=== PATIENT | female | born 1995 | race American Indian/Alaskan Native ===

== ENCOUNTER 2016-08-22 15:09 | Emergency (ER) | payer SELFPAY ==
[2016-08-22] MEDS ORDERED: MOTRIN PO ONE (17:43)
[2016-08-22] MEDS ORDERED: NORCO 5/325 PO ONE (17:43)
[2016-08-22] MEDS ORDERED: BICILLIN L-A IM ONE (17:43)
--- NOTE | 2016-08-22 17:45 | Emergency Department Report ---
ED ENT HPI - General Chief complaint: Sore Throat Stated complaint: UNABLE TO SWOLLOW/EAR PAIN/SORE THROAT Time Seen by Provider: 08/22/16 17:36 Source: patient Mode of arrival: Ambulatory Limitations: No Limitations - History of Present Illness Initial comments: PT c/o sore throat x 3 days. PT states her throat feels swollen and it hurts to eat/ swallow. PT states she took Benadryl today but it did not help. PT states she has had chills and body aches. MD complaint: tooth pain, ear pain Onset/Timin -: Gradual, days(s) Severity scale (0 -10): 10 Quality: stabbing, constant Consistency: constant Improves with: none Worsens with: swallowing, eating, medication Associated Symptoms: pain with swallowing, sore throat. denies: cough, discharge from ear - Related Data Previous Rx's Medication Instructions Recorded Last Taken Type Acetaminophen/Codeine [Tylenol #3] 1 tab PO Q6H PRN #7 tab 08/22/16 Unknown Rx Ibuprofen [Motrin] 600 mg PO Q8H PRN #15 tablet 08/22/16 Unknown Rx Allergies Allergy/AdvReac Type Severity Reaction Status Date / Time apple Allergy Hives Verified 08/22/16 15:30 ED Dental HPI - General Chief complaint: Sore Throat Stated complaint: UNABLE TO SWOLLOW/EAR PAIN/SORE THROAT Time Seen by Provider: 08/22/16 17:36 Source: patient Mode of arrival: Ambulatory Limitations: No Limitations - Related Data Previous Rx's Medication Instructions Recorded Last Taken Type Acetaminophen/Codeine [Tylenol #3] 1 tab PO Q6H PRN #7 tab 08/22/16 Unknown Rx Ibuprofen [Motrin] 600 mg PO Q8H PRN #15 tablet 08/22/16 Unknown Rx Allergies Allergy/AdvReac Type Severity Reaction Status Date / Time apple Allergy Hives Verified 08/22/16 15:30 ED Review of Systems ROS: Stated complaint: UNABLE TO SWOLLOW/EAR PAIN/SORE THROAT Other details as noted in HPI Comment: All other systems reviewed and negative Constitutional: chills, malaise. denies: fever ENT: as per HPI, ear pain, throat pain Respiratory: denies: cough Cardiovascular: denies: chest pain Gastrointestinal: denies: abdominal pain Genitourinary: abnormal menses (pt did not start her cycle today ) Hematological/Lymphatic: swollen glands ED Past Medical Hx - Past Medical History Previous Medical History?: No - Surgical History Past Surgical History?: No - Social History Smoking Status: Never Smoker Substance Use Type: None - Medications Home Medications: Home Medications Medication Instructions Recorded Confirmed Last Taken Type Acetaminophen/Codeine [Tylenol #3] 1 tab PO Q6H PRN #7 tab 08/22/16 Unknown Rx Ibuprofen [Motrin] 600 mg PO Q8H PRN #15 tablet 08/22/16 Unknown Rx ED Physical Exam - General Limitations: No Limitations General appearance: alert, in no apparent distress - Head Head exam: Present: atraumatic, normocephalic, normal inspection - Eye Eye exam: Present: normal appearance, PERRL, EOMI. Absent: conjunctival injection - ENT ENT exam: Present: mucous membranes moist, normal external ear exam - Expanded ENT Exam Expanded Ear exam: Present: other (LTM wnl ) TM/Canal exam: Foreign Body: Right TM (orange foam ) Mouth exam: Present: normal external inspection. Absent: drooling, trismus Throat exam: Positive: tonsillar erythema, tonsillomegaly, tonsillar exudate. Negative: R peritonsillar mass, L peritonsillar mass - Neck Neck exam: Present: normal inspection, tenderness, full ROM, lymphadenopathy - Respiratory Respiratory exam: Present: normal lung sounds bilaterally. Absent: respiratory distress - Cardiovascular Cardiovascular Exam: Present: regular rate, normal rhythm, normal heart sounds - GI/Abdominal GI/Abdominal exam: Present: soft, normal bowel sounds. Absent: tenderness - Extremities Exam Extremities exam: Present: normal inspection, full ROM - Back Exam Back exam: Present: normal inspection, full ROM. Absent: tenderness, CVA tenderness (R), CVA tenderness (L), muscle spasm, paraspinal tenderness, vertebral tenderness - Neurological Exam Neurological exam: Present: alert, oriented X3, normal gait - Psychiatric Psychiatric exam: Present: normal affect, normal mood - Skin Skin exam: Present: warm, dry, intact, normal color ED Course Vital Signs 08/22/16 08/22/16 08/22/16 15:30 17:46 17:59 Temperature 99.3 F 99.7 F H Pulse Rate 101 H Respiratory 18 16 Rate Blood Pressure 128/78 Blood Pressure [Right] O2 Sat by Pulse 100 Oximetry 06/21/17 06/21/17 06/21/17 19:35 19:45 19:46 Temperature 99 F 98.4 F 98.4 F Pulse Rate 98 H 98 H Respiratory 18 18 Rate Blood Pressure Blood Pressure 103/61 103/61 [Right] O2 Sat by Pulse 98 98 Oximetry - Reevaluation(s) Reevaluation #1: 08/22/16 17:56 PT aware of plan of care. PT has no questions at this time. Reevaluation #2: 08/22/16 19:36 PT aware of lab results. PT states her throat still hurts but her body aches improved. PT tolerating po intake. PT aware she will need to follow up with PCP. PT given strict return precautions. PT has no questions at this time. - Foreign Body Removal Ear Location: ear canal (R) Foreign Body Suspected: other (foam) Foreign Body Removed: yes Foreign Body Removal Technique: forceps (alligator) Tympanic Membrane Intact: Yes (and wnl ) Patient Tolerated Procedure: well Complications: none ED Medical Decision Making - Lab Data Laboratory Results - last 24 hr 08/22/16 18:56 Urine HCG, Qual Negative - Differential Diagnosis om, oe, fb, exudative pharyngits Critical Care Time: No Critical care attestation.: If time is entered above; I have spent that time in minutes in the direct care of this critically ill patient, excluding procedure time. ED Disposition Disposition: DC-01 TO HOME OR SELFCARE Is pt being admited?: No Does the pt Need Aspirin: No Condition: Stable Instructions: Ear Foreign Body (ED), Strep Throat (ED), Tonsillitis (ED) Additional Instructions: drink plenty of fluids strep throat is contagious, you were treated for it today, you should not need further antibiotics Change your toothbrush No driving after Tylenol #3 return to ED if worsening, otherwise follow up with PCP Prescriptions: Acetaminophen/Codeine [Tylenol #3] 1 tab PO Q6H PRN #7 tab PRN Reason: Pain , Severe (7-10) Ibuprofen [Motrin] 600 mg PO Q8H PRN #15 tablet PRN Reason: Pain Referrals: PRIMARY CARE, [Primary Care Provider] - 3-5 Days IMELDA BANASL MD [Staff Physician] - 3-5 Days [facility] [Outside] - 3-5 Days [facility] [Outside] - 3-5 Days Forms: Work/School Release Form(ED) Time of Disposition: 19:38
[2016-08-22 19:46] VITALS: BP 103/61
== END 2016-08-22 19:46 | disposition home or self-care (01) ==
LOC: ED 15:09
DX: T16.1XXA Foreign body in right ear, initial encounter (principal); J02.9 Acute pharyngitis, unspecified; K08.89 Other specified disorders of teeth and supporting structures; Z91.018 Allergy to other foods; W45.8XXA Other foreign body or object entering through skin, initial encounter; Y93.89 Activity, other specified; Y99.8 Other external cause status; Y92.89 Other specified places as the place of occurrence of the external cause
CPT/HCPCS: 69200; 81025; 96372; 99283; J0561

== ENCOUNTER 2017-02-23 09:28 | Emergency (ER) | payer OTHER ==
[2017-02-23 10:15] LABS: Basophils % (Auto) 0.5 % (0.0-1.8); Eosinophils % (Auto) 0.6 % (0.0-4.3); Hematocrit 38.8 % (30.3-42.9); Hemoglobin 13.2 gm/dl (10.1-14.3); Mean Corpuscular HGB Conc 34 % (30-34); Mean Corpuscular Hemoglobin 31 pg (28-32); Mean Corpuscular Volume 90 fl (79-97); Platelet Count 384 K/mm3 (140-440); Red Blood Count 4.31 M/mm3 (3.65-5.03)
[2017-02-23 10:24] LABS: INR 0.93 (0.87-1.13)
[2017-02-23 10:25] LABS: Anion Gap 17 mmol/L; BUN/Creatinine Ratio 13; Blood Urea Nitrogen 9 mg/dL (7-17); Carbon Dioxide 25 mmol/L (22-30); Chloride 99.1 mmol/L (98-107); Glucose 104 mg/dL (65-100); Potassium 4.1 mmol/L (3.6-5.0); Sodium 137 mmol/L (137-145)
[2017-02-23 10:26] LABS: Partial Thromboplastin Time 33.9 Sec. (24.2-36.6)
[2017-02-23 10:53] LABS: Bacteria,Urine 1+ /HPF (Negative); Bilirubin,Urine NEG (Negative); Blood,Urine SM (Negative); Ketones,Urine NEG (Negative); Leukocyte Esterase,Urine LG (Negative); Mucus,Urine FEW /HPF; Nitrite,Urine NEG (Negative); Protein,Urine <15 mg/dL mg/dL (Negative); Urobilinogen,Urine < 2.0 mg/dL (<2.0)
[2017-02-23] MEDS ORDERED: CARAFATE PO ONE (13:29)
[2017-02-23] MEDS ORDERED: PEPCID IV ONE (13:29)
[2017-02-23] MEDS ORDERED: ZOFRAN IV ONE (13:29)
[2017-02-23] MEDS ORDERED: NACL 0.9% 1000 ML 1,000 ML IV ONE (13:29)
[2017-02-23] MEDS ORDERED: TYLENOL PO ONE (13:30)
--- NOTE | 2017-02-23 13:30 | Emergency Department Report ---
ED General Adult HPI - General Chief complaint: Abdominal Pain Stated complaint: VOMITING Time Seen by Provider: 02/23/17 13:20 Source: patient, RN notes reviewed Mode of arrival: Ambulatory Limitations: No Limitations - History of Present Illness Initial comments: This is a 21-year-old female who was previously unknown to this provider. She does not have a primary care doctor. She has no chronic medical conditions. Patient reports that she is not , reports she is not given for the past 2 months, is not taking oral contraceptives, and denies DVT and pulmonary embolus risk factors. Patient presents to the ER with cough, vomiting blood, neck discomfort, back discomfort, myalgias, malaise and fatigue. Symptoms have been present since yesterday. They're constant. They decrease with rest. They decrease with over -the-counter pain medication, patient admits to cough, and fever at home yesterday to 103. -: Gradual, hour(s) Location: face, mouth, back Radiation: non-radiation Quality: aching Improves with: medication, rest Worsens with: movement Associated Symptoms: cough, fever/chills, weakness. denies: confusion, chest pain - Related Data Previous Rx's Medication Instructions Recorded Last Taken Type Acetaminophen/Codeine [Tylenol #3] 1 tab PO Q6H PRN #7 tab 08/22/16 Unknown Rx Ibuprofen [Motrin] 600 mg PO Q8H PRN #15 tablet 08/22/16 Unknown Rx Acetaminophen [Tylenol Arthritis] 650 mg PO Q6HR PRN #30 tablet.er 02/23/17 Unknown Rx Albuterol Sulfate [Proair 90 mcg IH Q4HR PRN #2 aer.pow.ba 02/23/17 Unknown Rx Respiclick] Benzonatate [Tessalon Perles] 100 mg PO Q8HR PRN #30 capsule 02/23/17 Unknown Rx Famotidine [Pepcid] 20 mg PO QDAY #30 tablet 02/23/17 Unknown Rx Fluticasone [Flonase] 1 spray NS QDAY #1 bottle 02/23/17 Unknown Rx Ondansetron [Zofran Odt] 4 mg PO Q8HR PRN #20 tab.rapdis 02/23/17 Unknown Rx Allergies Allergy/AdvReac Type Severity Reaction Status Date / Time apple Allergy Hives Verified 02/23/17 15:31 ED Review of Systems ROS: Stated complaint: VOMITING Other details as noted in HPI Constitutional: malaise, weakness ENT: throat pain, congestion. denies: epistaxis Respiratory: cough Cardiovascular: denies: chest pain Gastrointestinal: vomiting Musculoskeletal: back pain Neurological: weakness ED Past Medical Hx - Past Medical History Previous Medical History?: No - Surgical History Past Surgical History?: No - Social History Smoking Status: Never Smoker Substance Use Type: None - Medications Home Medications: Home Medications Medication Instructions Recorded Confirmed Last Taken Type Acetaminophen/Codeine [Tylenol #3] 1 tab PO Q6H PRN #7 tab 08/22/16 Unknown Rx Ibuprofen [Motrin] 600 mg PO Q8H PRN #15 tablet 08/22/16 Unknown Rx Acetaminophen [Tylenol Arthritis] 650 mg PO Q6HR PRN #30 tablet.er 02/23/17 Unknown Rx Albuterol Sulfate [Proair 90 mcg IH Q4HR PRN #2 aer.pow.ba 02/23/17 Unknown Rx Respiclick] Benzonatate [Tessalon Perles] 100 mg PO Q8HR PRN #30 capsule 02/23/17 Unknown Rx Famotidine [Pepcid] 20 mg PO QDAY #30 tablet 02/23/17 Unknown Rx Fluticasone [Flonase] 1 spray NS QDAY #1 bottle 02/23/17 Unknown Rx Ondansetron [Zofran Odt] 4 mg PO Q8HR PRN #20 tab.rapdis 02/23/17 Unknown Rx ED Physical Exam - General Limitations: No Limitations General appearance: alert, in no apparent distress - Head Head exam: Present: atraumatic, normocephalic - Eye Eye exam: Present: normal appearance, PERRL, EOMI. Absent: nystagmus - ENT ENT exam: Present: normal exam, normal orophraynx, mucous membranes moist, TM's normal bilaterally, normal external ear exam - Neck Neck exam: Present: normal inspection, full ROM. Absent: tenderness, meningismus - Respiratory Respiratory exam: Present: normal lung sounds bilaterally. Absent: respiratory distress - Cardiovascular Cardiovascular Exam: Present: normal rhythm, tachycardia, normal heart sounds. Absent: systolic murmur, diastolic murmur, rubs, gallop - GI/Abdominal GI/Abdominal exam: Present: soft, normal bowel sounds. Absent: distended, tenderness, guarding, rebound, rigid, pulsatile mass - Extremities Exam Extremities exam: Present: normal inspection, full ROM, normal capillary refill. Absent: tenderness, pedal edema, joint swelling, calf tenderness - Back Exam Back exam: Present: normal inspection, full ROM. Absent: tenderness, CVA tenderness (R), paraspinal tenderness, vertebral tenderness - Neurological Exam Neurological exam: Present: alert, oriented X3, CN II-XII intact, normal gait, other (Extraocular movements intact. Tongue midline. No facial droop. Facial sensation intact to light touch in the V1, V2, V3 distribution bilaterally. 5 and 5 strength in 4 extremities.. Sensation is intact to light touch in 4 extremities.). Absent: motor sensory deficit - Psychiatric Psychiatric exam: Present: normal affect, normal mood - Skin Skin exam: Present: warm, dry, intact, normal color. Absent: rash ED Course Vital Signs 02/23/17 02/23/17 02/23/17 09:31 12:13 14:15 Temperature 99.2 F 97.8 F 99.1 F Pulse Rate 114 H 76 100 H Respiratory 20 16 16 Rate Blood Pressure 121/83 Blood Pressure 137/72 132/87 [Left] O2 Sat by Pulse 100 97 100 Oximetry 02/23/17 15:38 Temperature 98.2 F Pulse Rate 88 Respiratory 20 Rate Blood Pressure Blood Pressure 128/77 [Left] O2 Sat by Pulse 99 Oximetry ED Medical Decision Making - Lab Data Result diagrams: 02/23/17 09:56 02/23/17 09:56 Vital Signs 02/23/17 02/23/17 02/23/17 09:31 12:13 14:15 Temperature 99.2 F 97.8 F 99.1 F Pulse Rate 114 H 76 100 H Respiratory 20 16 16 Rate Blood Pressure 121/83 Blood Pressure 137/72 132/87 [Left] O2 Sat by Pulse 100 97 100 Oximetry Lab Results 02/23/17 02/23/17 02/23/17 Range/Units 09:54 09:56 09:56 WBC 10.0 (4.5-11.0) K/mm3 RBC 4.31 (3.65-5.03) M/mm3 Hgb 13.2 (10.1-14.3) gm/dl Hct 38.8 (30.3-42.9) % MCV 90 (79-97) fl MCH 31 (28-32) pg MCHC 34 (30-34) % RDW 14.0 (13.2-15.2) % Plt Count 384 (140-440) K/mm3 Lymph % (Auto) 15.2 (13.4-35.0) % [place] % (Auto) 13.3 H (0.0-7.3) % Eos % (Auto) 0.6 (0.0-4.3) % Baso % (Auto) 0.5 (0.0-1.8) % Lymph # 1.5 (1.2-5.4) K/mm3 [place] # 1.3 H (0.0-0.8) K/mm3 Eos # 0.1 (0.0-0.4) K/mm3 Baso # 0.0 (0.0-0.1) K/mm3 Seg Neutrophils % 70.4 H (40.0-70.0) % Seg Neutrophils # 7.0 (1.8-7.7) K/mm3 PT (12.2-14.9) Sec. INR (0.87-1.13) APTT (24.2-36.6) Sec. Sodium 137 (137-145) mmol/L Potassium 4.1 (3.6-5.0) mmol/L Chloride 99.1 (98-107) mmol/L Carbon Dioxide 25 (22-30) mmol/L Anion Gap 17 mmol/L BUN 9 (7-17) mg/dL Creatinine 0.7 (0.7-1.2) mg/dL Estimated GFR > 60 ml/min BUN/Creatinine Ratio 13 % Glucose 104 H (65-100) mg/dL Calcium 9.0 (8.4-10.2) mg/dL Urine Color Yellow (Yellow) Urine Turbidity Clear (Clear) Urine pH 6.0 (5.0-7.0) Ur Specific [place] 1.018 (1.003-1.030) Urine Protein <15 mg/dl (Negative) mg/dL Urine Glucose (UA) Neg (Negative) mg/dL Urine Ketones Neg (Negative) mg/dL Urine Blood Sm (Negative) Urine Nitrite Neg (Negative) Urine Bilirubin Neg (Negative) Urine Urobilinogen < 2.0 (<2.0) mg/dL Ur Leukocyte Esterase Lg (Negative) Urine WBC (Auto) 2.0 (0.0-6.0) /HPF Urine RBC (Auto) 5.0 (0.0-6.0) /HPF U Epithel Cells (Auto) 7.0 (0-13.0) /HPF Urine Bacteria (Auto) 1+ (Negative) /HPF Urine Mucus Few /HPF Urine HCG, Qual (Negative) 02/23/17 02/23/17 Range/Units 09:56 12:00 WBC (4.5-11.0) K/mm3 RBC (3.65-5.03) M/mm3 Hgb (10.1-14.3) gm/dl Hct (30.3-42.9) % MCV (79-97) fl MCH (28-32) pg MCHC (30-34) % RDW (13.2-15.2) % Plt Count (140-440) K/mm3 Lymph % (Auto) (13.4-35.0) % [place] % (Auto) (0.0-7.3) % Eos % (Auto) (0.0-4.3) % Baso % (Auto) (0.0-1.8) % Lymph # (1.2-5.4) K/mm3 [place] # (0.0-0.8) K/mm3 Eos # (0.0-0.4) K/mm3 Baso # (0.0-0.1) K/mm3 Seg Neutrophils % (40.0-70.0) % Seg Neutrophils # (1.8-7.7) K/mm3 PT 12.9 (12.2-14.9) Sec. INR 0.93 (0.87-1.13) APTT 33.9 (24.2-36.6) Sec. Sodium (137-145) mmol/L Potassium (3.6-5.0) mmol/L Chloride (98-107) mmol/L Carbon Dioxide (22-30) mmol/L Anion Gap mmol/L BUN (7-17) mg/dL Creatinine (0.7-1.2) mg/dL Estimated GFR ml/min BUN/Creatinine Ratio % Glucose (65-100) mg/dL Calcium (8.4-10.2) mg/dL Urine Color (Yellow) Urine Turbidity (Clear) Urine pH (5.0-7.0) Ur Specific [place] (1.003-1.030) Urine Protein (Negative) mg/dL Urine Glucose (UA) (Negative) mg/dL Urine Ketones (Negative) mg/dL Urine Blood (Negative) Urine Nitrite (Negative) Urine Bilirubin (Negative) Urine Urobilinogen (<2.0) mg/dL Ur Leukocyte Esterase (Negative) Urine WBC (Auto) (0.0-6.0) /HPF Urine RBC (Auto) (0.0-6.0) /HPF U Epithel Cells (Auto) (0-13.0) /HPF Urine Bacteria (Auto) (Negative) /HPF Urine Mucus /HPF Urine HCG, Qual Negative (Negative) - Radiology Data Radiology results: image reviewed interpreted by me: X-ray of the chest, interpreted by me: No acute disease. - Medical Decision Making Differential diagnosis, including but not limited to: Viral syndrome, bronchitis , bronchiectasis, pneumonia, sinusitis, upper GI bleed Assessment and plan: 21-year-old female with cough, reported vomiting blood, body aches, sore throat, muscle skeletal discomfort. Initially has a low-grade temperature and is tachycardic, but has a supple neck and is speaking full sentences. No exudates noted on pharyngeal exam, has mild frontal sinus tenderness, x-ray the chest is negative, laboratory studies unremarkable. Patient treated with IV fluids, Tylenol and gi cocktail, feels improved, tachycardia resolved, currently sleeping on a stretcher, noted intermittently to be plan a cell phone with no distress. Patient tolerating liquid feeds at this time, there does not appear to be an emergent condition at this time, and she is suitable to follow-up in outpatient primary care doctor or delivery engineer. She will be discharged at this time, return precautions are reviewed. Critical care attestation.: If time is entered above; I have spent that time in minutes in the direct care of this critically ill patient, excluding procedure time. ED Disposition Clinical Impression: History of vomiting Disposition: DC-01 TO HOME OR SELFCARE Is pt being admited?: No Does the pt Need Aspirin: No Condition: Stable Instructions: Abdominal Pain (ED) Additional Instructions: Symptoms most likely coming from viral syndrome. X-ray of the chest today was interpreted as negative by the ER physician, a final interpretation we rear- ended within the next 24 hours. Occasionally, final interpretations are changed by radiology, therefore please have a primary care doctor contact medical records department to obtain final x-ray results. Avoid consumption of ibuprofen, Motrin, Aleve, Naprosyn. Avoid consumption of heavy, spicy, rich fatty foods. The cough medication, breathing medication, pain medication, nausea medication as needed/directed. Follow up with either her primary care doctor or delivery engineer for vomiting blood within the next month. Dr. Bangura is a local primary care doctor; Dr. Navarro is a local gastroenterology specialist. Return to the ER right away with new pain, worsening pain, migration of pain, fevers, chills, lethargy, irritability, projectile vomiting, change in mental status, confusion, inability to tolerate with her feet. Prescriptions: Acetaminophen [Tylenol Arthritis] 650 mg PO Q6HR PRN #30 tablet.er PRN Reason: Pain Albuterol Sulfate [Proair Respiclick] 90 mcg IH Q4HR PRN #2 aer.pow.ba PRN Reason: Wheezing Benzonatate [Tessalon Perles] 100 mg PO Q8HR PRN #30 capsule PRN Reason: Cough Famotidine [Pepcid] 20 mg PO QDAY #30 tablet Fluticasone [Flonase] 1 spray NS QDAY #1 bottle Ondansetron [Zofran Odt] 4 mg PO Q8HR PRN #20 tab.rapdis PRN Reason: Nausea Referrals: PRIMARY CARE, [Primary Care Provider] - 3-5 Days STEPH BANGURA MD [Staff Physician] - 3-5 Days ELENO NAVARRO MD [Staff Physician] - 3-5 Days
--- NOTE | 2017-02-23 15:01 | XRay Report ---
FINAL REPORT PROCEDURE: XR CHEST ROUTINE 2V TECHNIQUE: PA and lateral chest radiographs were obtained. CPT 67550 HISTORY: vomiting blood uri symptoms COMPARISON: No prior studies are available for comparison. FINDINGS: Heart: Normal. Mediastinum/Vessels: Normal. Lungs/Pleural space: No infiltrate, effusion, or pneumothorax. Bony thorax: No acute osseous abnormality. Other: IMPRESSION: No pulmonary infiltrates are identified.
[2017-02-23 15:40] VITALS: BP 128/77
== END 2017-02-23 15:41 | disposition home or self-care (01) ==
LOC: ED 09:28
DX: R04.2 Hemoptysis (principal); M79.1 Myalgia
CPT/HCPCS: 36415; 71020; 80048; 81001; 81025; 85025; 85610; 85730; 96361; 96374; 96375; 99284; J2405; J7030

== ENCOUNTER 2017-10-17 11:19 | Emergency (ER) | payer SELFPAY ==
[2017-10-17 12:50] VITALS: BP 100/63
[2017-10-17 13:19] LABS: Basophils % (Auto) 0.5 % (0.0-1.8); Eosinophils # (Auto) 0.3 K/mm3 (0.0-0.4); Eosinophils % (Auto) 3.4 % (0.0-4.3); Hematocrit 36.7 % (30.3-42.9); Hemoglobin 12.6 gm/dl (10.1-14.3); Lymphocytes # (Auto) 2.8 K/mm3 (1.2-5.4); Lymphocytes % (Auto) 37.4 % (13.4-35.0); Mean Corpuscular HGB Conc 34 % (30-34); Mean Corpuscular Hemoglobin 31 pg (28-32); Mean Corpuscular Volume 89 fl (79-97); Monocytes # (Auto) 0.5 K/mm3 (0.0-0.8); Monocytes % (Auto) 6.2 % (0.0-7.3); Platelet Count 408 K/mm3 (140-440); Red Blood Count 4.11 M/mm3 (3.65-5.03)
[2017-10-17 13:28] LABS: Bilirubin,Urine NEG (Negative); Blood,Urine MOD (Negative); Color,Urine Yellow (Yellow); Mucus,Urine 2+ /HPF; Protein,Urine <15 mg/dL mg/dL (Negative); Urobilinogen,Urine < 2.0 mg/dL (<2.0)
== END 2017-10-17 15:38 | disposition left against medical advice (07) ==
LOC: ED 11:19
DX: N93.9 Abnormal uterine and vaginal bleeding, unspecified (principal); R10.2 Pelvic and perineal pain; Z53.21 Procedure and treatment not carried out due to patient leaving prior to being seen by health care provider
CPT/HCPCS: 36415; 81001; 84702; 85025; 86850; 86900; 86901

== ENCOUNTER 2019-08-23 03:23 | Outpatient (CLI) | payer OTHER, MEDICAID ==
[2019-08-23] MEDS ORDERED: LACTATED RINGERS 1,000 ML IV ONE (05:10)
--- NOTE | 2019-08-23 07:21 | Ultrasound Report ---
US OB follow up, US OB BPP wo non-stress INDICATION / CLINICAL INFORMATION: HAIDER, placenta. COMPARISON: None available. FINDINGS: Single, viable intrauterine in cephalic presentation. heart rate 170. Placenta is on the maternal right, free of the cervical os. Amniotic fluid volume is within normal li mits, with a fluid index of 8 cm. Biparietal diameter 9.2 cm, 37 weeks 3 days. Head circumference 32.7 cm, 37 weeks 1 day. Abdominal circumference 33.8 cm, 37 weeks 5 days. Femur length 7.5 cm, 38 weeks 1 day. Estimated body weight 3288 g. Biophysical profile breathing movements: 2 movements: 2 posture and tone: 2 Amniotic fluid volume: 2 Total physical profile score 8/8 IMPRESSION: 1. Single, viable 37 week 4 day intrauterine . Biophysical profile score 8/8. Signer Name: Sumeet Stanton MD Signed: 08/23/2019 7:16 AM Workstation Name: [id number]
[2019-08-23 07:56] LABS: Amphetamine Screen,Urine PRESUMPTIVE NEGATIVE; Benzodiazepines Screen,Urine PRESUMPTIVE NEGATIVE; Cannabinoid Screen,Urine PRESUMPTIVE NEGATIVE; Cocaine Screen,Urine PRESUMPTIVE NEGATIVE; Methadone Screen,Urine PRESUMPTIVE NEGATIVE; Opiate Screen,Urine PRESUMPTIVE NEGATIVE
[2019-08-23 09:14] LABS: Bilirubin,Urine NEG (Negative); Blood,Urine NEG (Negative); Color,Urine Yellow (Yellow); Mucus,Urine FEW /HPF; Protein,Urine <15 mg/dL mg/dL (Negative); Urobilinogen,Urine < 2.0 mg/dL (<2.0)
[2019-08-23 10:57] LABS: Basophils % (Auto) 0.4 % (0.0-1.8); Eosinophils # (Auto) 0.1 K/mm3 (0.0-0.4); Eosinophils % (Auto) 0.6 % (0.0-4.3); Hematocrit 31.6 % (30.3-42.9); Hemoglobin 10.5 gm/dl (10.1-14.3); Lymphocytes # (Auto) 1.7 K/mm3 (1.2-5.4); Lymphocytes % (Auto) 15.5 % (13.4-35.0); Mean Corpuscular HGB Conc 33 % (30-34); Mean Corpuscular Volume 90 fl (79-97); Monocytes # (Auto) 0.6 K/mm3 (0.0-0.8); Monocytes % (Auto) 5.4 % (0.0-7.3); Platelet Count 298 K/mm3 (140-440); Red Blood Count 3.52 M/mm3 (3.65-5.03); Red Cell Distribution Width 14.3 % (13.2-15.2)
[2019-08-23] MEDS ORDERED: LACTATED RINGERS 1,000 ML ONE (12:16)
[2019-08-23 12:22] VITALS: BP 125/58
== END 2019-08-23 12:30 | disposition home or self-care (01) ==
LOC: TRG 03:23 → APU 03:30 → LD 08:25 → TRG 12:30
PROVIDERS: ATTEND Obstetrics & Gynecology
DX: O99.613 Diseases of the digestive system complicating pregnancy, third trimester (principal); K62.89 Other specified diseases of anus and rectum; O26.893 Other specified pregnancy related conditions, third trimester; R10.2 Pelvic and perineal pain; O47.1 False labor at or after 37 completed weeks of gestation; Z3A.37 37 weeks gestation of pregnancy
CPT/HCPCS: 36415; 76816; 76819; 80307; 81001; 85025; 86592; 86850; 86900; 86901; 96360; J7120

== ENCOUNTER 2019-08-28 05:57 | Inpatient (IN) | payer OTHER, MEDICAID ==
[2019-08-28] MEDS ORDERED: LACTATED RINGERS 1,000 ML ONE (07:44)
[2019-08-28 07:48] LABS: Basophils % (Auto) 0.3 % (0.0-1.8); Eosinophils % (Auto) 0.2 % (0.0-4.3); Hematocrit 30.9 % (30.3-42.9); Hemoglobin 10.2 gm/dl (10.1-14.3); Lymphocytes # (Auto) 1.3 K/mm3 (1.2-5.4); Mean Corpuscular HGB Conc 33 % (30-34); Mean Corpuscular Volume 90 fl (79-97); Monocytes % (Auto) 6.8 % (0.0-7.3); Platelet Count 317 K/mm3 (140-440); Red Blood Count 3.45 M/mm3 (3.65-5.03); Red Cell Distribution Width 14.8 % (13.2-15.2)
[2019-08-28] MEDS ORDERED: LIDOCAINE (2%) 20 MG/1 ML VIAL 20 ML MDV INFILTRATI ONE (08:26)
[2019-08-28] MEDS ORDERED: fentaNYL 100 MCG/2 ML INJ IV PRN (08:26)
[2019-08-28] MEDS ORDERED: MINERAL OIL 30 ML ORAL LIQD PO PRN (08:26)
[2019-08-28] MEDS ORDERED: ONDANSETRON 4 MG/2 ML INJ IV PRN (08:26)
[2019-08-28] MEDS ORDERED: TERBUTALINE 1 MG/1 ML INJ SUB-Q PRN (08:26)
[2019-08-28] MEDS ORDERED: ePHEDrine SULFATE 50 MG/1 ML INJ IV PRN ×2 (08:40→13:19)
[2019-08-28] MEDS: BUTORPHANOL 2 MG/1 ML INJ IV PRN ×2 (08:54→10:55)
[2019-08-28] MEDS: LACTATED RINGERS 1,000 ML IV SCH ×2 (08:54→16:04)
[2019-08-28] MEDS ORDERED: OXYTOCIN DRIP 30 UNITS/500 ML BAG IV SCH (09:00)
[2019-08-28] MEDS ORDERED: AMPICILLIN/NS 2 GM/100 ML 2 GM/100 ML BAG IV ONE (09:00)
[2019-08-28] MEDS ORDERED: OXYTOCIN 20 UNIT/1000ML DRIP 20 UNITS/1,000 ML BAG IV SCH (09:00)
--- NOTE | 2019-08-28 09:28 | History and Physical Report ---
History of Present Illness Date of examination: 08/28/19 Date of admission: 08/28/19 07:22 Chief complaint: "Leaking fluid for 3 days" History of present illness: 23yo, G1 @ 37.6 wks, initiated care with [facility] at 6.6 wks gestation. Her has been complicated by anemia, BV, GBS positive status, MO, UTI, varicella non-immune status and Vit D deficiency. She reports to [facility] early this am with reports of leaking fluid x 3 days. Reports +FM. Denies any VB. Upon examination she was found to be grossly ruptured, therefore, admitted to L&D. Labs: O+, antibody negative; rubella immune; VDRL non-reactive; urine culture positive; HBsAg negative; HIV negative; GC/Chlamydia/Trich negative; Hbg A1c- 5.7; Vit D-6.7; varicella non-immune; HSVII negative; early 1hr gtt-99; 28 wk 1 hr gtt - 118; GBS positive. Past History Past Medical History: no pertinent history Past Surgical History: no surgical history Family/Genetic History: diabetes (Mother - Type II) Social history: single, full code. denies: smoking, alcohol abuse, prescription drug abuse, IV drug use - Obstetrical History Expected Date of Delivery: 09/12/19 Actual Gestation: 37 Week(s) 6 Day(s) : 1 Para: 0 Hx # Term Pregnancies: 0 Number of Pregnancies: 0 Spontaneous Abortions: 0 Induced : 0 Number of Living Children: 0 Medications and Allergies Allergies Allergy/AdvReac Type Severity Reaction Status Date / Time apple Allergy Hives Verified 02/23/17 15:31 Home Medications Medication Instructions Recorded Confirmed Last Taken Type Acetaminophen/Codeine [Tylenol #3] 1 tab PO Q6H PRN #7 tab 08/22/16 08/28/19 Unknown Rx Ibuprofen [Motrin] 600 mg PO Q8H PRN #15 tablet 08/22/16 08/28/19 Unknown Rx Acetaminophen [Tylenol Arthritis] 650 mg PO Q6HR PRN #30 tablet.er 02/23/17 08/28/19 Unknown Rx Albuterol Sulfate [Proair 90 mcg IH Q4HR PRN #2 aer.[email or web address] 02/23/17 08/28/19 Unknown Rx Respiclick] Benzonatate [Tessalon Perles] 100 mg PO Q8HR PRN #30 capsule 02/23/17 08/28/19 Unknown Rx Famotidine [Pepcid] 20 mg PO QDAY #30 tablet 02/23/17 08/28/19 Unknown Rx Fluticasone [Flonase] 1 spray NS QDAY #1 bottle 02/23/17 08/28/19 Unknown Rx Ondansetron [Zofran Odt] 4 mg PO Q8HR PRN #20 tab.rapdis 02/23/17 08/28/19 Unknown Rx Active Meds: Active Medications Butorphanol Tartrate (Stadol) 2 mg IV Q2H PRN PRN Reason: Pain , Severe (7-10) Last Admin: 08/28/19 08:54 Dose: 2 mg Documented by: Ephedrine Sulfate (Ephedrine Sulfate) 10 mg IV Q2M PRN PRN Reason: Hypotension Fentanyl (Sublimaze) 100 mcg IV Q2H PRN PRN Reason: Pain,Severe (7-10) LABOR PAIN Oxytocin/Sodium Chloride (Pitocin/Ns 20 Unit/1000ml Drip) 20 units in 1,000 mls @ 125 mls/hr IV DIRECT CATHY Oxytocin/Sodium Chloride (Pitocin/Ns 30 Unit/500ml) 30 units in 500 mls @ 2 mls/hr IV TITR CATHY; Protocol Last Admin: 08/28/19 09:00 Dose: 2 ml/hr, 2 mls/hr Documented by: Lactated Ringer's (Lactated Ringers) 1,000 mls @ 125 mls/hr IV DIRECT CATHY Last Admin: 08/28/19 08:54 Dose: 125 mls/hr Documented by: Ampicillin Sodium (Ampicillin/Ns 2 Gm/100 Ml) 2 gm in 100 mls @ 100 mls/hr IV O NCE ONE; Protocol Stop: 08/28/19 09:59 Last Admin: 08/28/19 09:00 Dose: 100 mls/hr Documented by: Ampicillin Sodium (Ampicillin/Ns 1 Gm/50 Ml) 1 gm in 50 mls @ 100 mls/hr IV Q4HR CATHY; Protocol Mineral Oil (Mineral Oil) 30 ml PO QHS PRN PRN Reason: Constipation Ondansetron HCl (Zofran) 4 mg IV Q8H PRN PRN Reason: Nausea And Vomiting Last Admin: 08/28/19 08:56 Dose: 4 mg Documented by: Terbutaline Sulfate (Brethine) 0.25 mg SUB-Q ONCE PRN PRN Reason: Hyperstimulation/Hypertonicity Review of Systems All systems: negative Genitourinary: leakage of fluid (x 3 days), contractions - Vital Signs Vital signs: Vital Signs Pulse BP 111 H 133/64 08/28/19 06:35 08/28/19 06:35 Temp Pulse Resp BP Pulse Ox 98.9 F 121 H 22 133/64 97 08/28/19 08:53 08/28/19 09:18 08/28/19 07:04 08/28/19 06:35 08/28/19 09:18 - Physical Exam Breasts: Positive: normal Cardiovascular: Regular rate Lungs: Positive: Normal air movement Abdomen: Positive: other (gravid) Vagina: Positive: other (mod amt of pink, cloudy fluids noted) Uterus: Positive: enlarged (S>D) Extremities: Positive: normal Deep Tendon Reflex Grade: Normal +2 - Obstetrical FHR: category 1 Uterine Contraction Monitor Mode: External Cervical Dilatation: 1 (vertex) Cervical Effacement Percentage: 65 station: -2 Uterine Contraction Frequency (min): 5-6 Uterine Contraction Pattern: Irregular Uterine Tone Measurement Phase: Resting Uterine Contraction Intensity: Mild Results Result Diagrams: 08/28/19 07:30 Abnormal lab results 08/28/19 Range/Units 07:30 WBC 14.8 H (4.5-11.0) K/mm3 RBC 3.45 L (3.65-5.03) M/mm3 Lymph % (Auto) 9.0 L (13.4-35.0) % [place] # 1.0 H (0.0-0.8) K/mm3 Seg Neutrophils % 83.7 H (40.0-70.0) % Seg Neutrophils # 12.4 H (1.8-7.7) K/mm3 All other labs normal. Assessment and Plan - Patient Problems (1) SROM (spontaneous rupture of membranes) Current Visit: Yes Status: Acute Plan to address problem: Admit to L & D Pain meds as desired Anticipate (2) GBS (group B Streptococcus carrier), +RV culture, currently Current Visit: Yes Status: Acute Plan to address problem: GBS prophylaxis per protocol Temp q hr until delivery Monitor fluids closely (3) Morbid obesity with BMI of 50.0-59.9, adult Current Visit: Yes Status: Acute (4) Susceptible to varicella (non-immune), currently Current Visit: Yes Status: Acute (5) Anemia Current Visit: Yes Status: Acute Qualifiers: Anemia type: iron deficiency Plan to address problem: Resume daily oral iron supplementation PP
[2019-08-28] MEDS: AMPICILLIN/NS 1 GM/50 ML 1 GM/50 ML BAG IV SCH ×2 (13:00→17:19)
[2019-08-28 13:04] LABS: Hematocrit 31.5 % (30.3-42.9); Hemoglobin 10.3 gm/dl (10.1-14.3); Mean Corpuscular HGB Conc 33 % (30-34); Mean Corpuscular Volume 91 fl (79-97); Platelet Count 317 K/mm3 (140-440); Red Blood Count 3.47 M/mm3 (3.65-5.03); Red Cell Distribution Width 14.9 % (13.2-15.2)
--- NOTE | 2019-08-28 13:12 | Anesthesia Consultation ---
Anesthesia Consult and Med Hx Date of service: 08/28/19 - Airway Anesthetic Teeth Evaluation: Good ROM Head & Neck: Adequate Mental/Hyoid Distance: Adequate Mallampati Class: Class III Intubation Access Assessment: Possibly Difficult - Pre-Operative Health Status ASA Pre-Surgery Classification: ASA3 Proposed Anesthetic Plan: Epidural, Spinal - Pulmonary Hx Asthma: No COPD: No Hx Pneumonia: No - Cardiovascular System Hx Hypertension: No - Central Nervous System Hx Seizures: No Hx Psychiatric Problems: No - Endocrine Hx Renal Disease: No Hx End Stage Renal Disease: No Hx Hypothyroidism: No Hx Hyperthyroidism: No - Hematic Hx Anemia: Yes (taking iron) Hx Sickle Cell Disease: No - Other Systems Hx Alcohol Use: No Hx Obesity: Yes (Morbid obesity, BMI-52.3)
[2019-08-28] MEDS ORDERED: NALOXONE 2 MG/2 ML INJ IV PRN (13:19)
--- NOTE | 2019-08-28 13:50 | Progress Note ---
Labor Epidural - Labor Epidural Start Time: 13:21 Stop Time: 13:35 Performed by:: CHAYA SHAW Procedure: Patient is requesting combined spinal epidural for labor and pain. H&P, labs were reviewed. All questions and concerns were answered. Informed consent was obtained. Timeout performed. Patient in sitting position on side of bed. Sterile prep and drape was performed. 5 mL 1% lidocaine skin wheal at L [3]-L [4]. 18-gauge Touhy epidural needle advanced to [id number] using air technique, [5]. 27-gauge spinal needle advanced [clear positive free-flowing] CSF. spinal dose of [.5 cc .75% marcaine]. Epidural catheter advanced to [15] cm. [Negative] Aspiration, [negative] test dose. Sterile dressing applied. Patient tolerated procedure well.
[2019-08-28] MEDS ORDERED: fentaNYL-BUPIV 2 MCG/ML-0.125% 200 MCG/100 ML BAG EPIDURAL SCH (14:00)
[2019-08-28] MEDS ORDERED: ACETAMINOPHEN 325 MG TAB PO ONE (17:19)
--- NOTE | 2019-08-28 17:19 | Event Note ---
Date: 08/28/19 Assumed care of patient. SVE /-1. Patient is receiving Ampicillin for GBS prophylaxis and Pitocin for IOL. Patient has epidural.
--- NOTE | 2019-08-28 17:56 | Event Note ---
Date: 08/28/19 Dr. Bennett checked patient and states patient is now completely dilated and +[address] Bennett estimates the weight to be 7 lbs and states the maternal pelvis is adequate to accomodate a baby of that size. Dr. Bennett states fetus is in OP position. Gentamicin added to antibiotic regimen and tylenol given for low grade temp. Will start pushing.
[2019-08-28] MEDS ORDERED: GENTAMICIN 100 MG in SODIUM CHLORIDE 0.9% 100 ML IV SCH (18:00)
[2019-08-28 18:46] LABS: Alanine Aminotransferase 6 units/L (7-56); Albumin 3.2 g/dL (3.9-5); BUN/Creatinine Ratio 15; Blood Urea Nitrogen 9 mg/dL (7-17); Calcium 9.1 mg/dL (8.4-10.2); Hemolysis Index 3
--- NOTE | 2019-08-28 19:34 | Procedure Note ---
OB Delivery Note - Delivery Date of Delivery: 08/28/19 Surgeon: CAROLYN RODNEY Estimated blood loss: other (150 cc) - Vaginal Delivery presentation: vertex Delivery position: OA Intrapartum events: extend. tachycardia, other(please specify) (maternal fever, prolonged ROM) Delivery induction: oxytocin Delivery monitor: external FHT, external uterine Route of delivery: Delivery placenta: spontaneous Delivery cord: 3 umbilical vessels Episiotomy: midline Delivery repair: vicryl Anesthesia: local, epidural Delivery comments: Spontaneous vaginal delivery at 18:32 of liveborn female infant weighing 7 lb. 5 oz. over 2nd degree MLE with apgars of 8/9. Epidural anesthesia. Maternal and tachycardia and maternal fever just prior to delivery. Patient receiving Ampicillin and Gentamicin IV. Baby delivered gently and easily; no nuchal cord and shoulders were atraumatic. 3 vessel cord double clamped and cut. Spontaneous cry and respirations. Baby taken to warmer for suctioning and evaluation. Spontaneous delivery of intact placenta and membranes by patiño mechanism. EBL 150 cc. Pitocin to IV fluids after delivery of placenta. Fundus firm and midline below umbilicus. Repair of 2nd degree midline episiotomy with 3-0 vicryl in usual sterile fashion. No other lacerations noted. Vaginal sweep negative. Sponge count correct. Mother and baby stable.
[2019-08-28] MEDS ORDERED: LANOLIN/ZINC/DIMETHICONE (LANSINOH) 7 GM TP PRN (19:53)
[2019-08-28] MEDS ORDERED: MAGNESIUM HYDROXIDE (MOM) ORAL LIQD UDC PO PRN (19:53)
[2019-08-28] MEDS ORDERED: diphenhydrAMINE 25 MG CAP PO PRN (19:53)
[2019-08-28] MEDS ORDERED: WITCH HAZEL/ GLYCERIN PAD TP PRN (19:53)
[2019-08-28] MEDS: oxyCODONE /ACETAMINOPHEN 5-325MG TAB PO PRN (20:38)
[2019-08-28] MEDS: IBUPROFEN 600 MG TAB PO SCH (23:29)
[2019-08-29] MEDS: AMPICILLIN/NS 2 GM/100 ML 2 GM/100 ML BAG IV SCH ×2 (03:30→10:23)
[2019-08-29] MEDS: GENTAMICIN/NS 100 MG/100 ML 100 MG/100 ML BAG IV SCH ×3 (06:20→14:40)
[2019-08-29] MEDS: IBUPROFEN 600 MG TAB PO SCH ×2 (06:21→15:00)
[2019-08-29 07:47] LABS: Hematocrit 27.7 % (30.3-42.9); Hemoglobin 9.2 gm/dl (10.1-14.3)
--- NOTE | 2019-08-29 08:13 | Post Anesthesia Evaluation ---
- Post Anesthesia Evaluation Patient Participated: Yes Airway Patent: Yes Stable Respiratory Function: Yes Nausea/Vomiting: No Temp > 96.8F: Yes Pain Manageable: Yes Adequeate Hydration: Yes Anesthesia Complications: No Block Receding Appropriately: Yes Patient on Ventilator: No
[2019-08-29] MEDS: oxyCODONE /ACETAMINOPHEN 5-325MG TAB PO PRN ×2 (10:23→19:51)
[2019-08-29] MEDS: FERROUS SULFATE 325 MG TAB PO SCH ×2 (10:23→22:28)
--- NOTE | 2019-08-29 11:22 | Progress Note ---
Assessment and Plan A: day 1 S/P . Anemia, on iron supplementation. P: Continue iron supplementation. Plan to discontinue antibiotics this afternoon. Subjective - Subjective Date of service: 08/29/19 Principal diagnosis: day 1 S/P Interval history: day 1 S/P . Anemia, on iron supplementation. Receiving ampicillin and gentamicin (plan to discontinue both this evening). Patient denies fever, chills, cough, shortness of breath, headache, chest pain, leg pain, nausea or vomiting, or heavy bleeding. Patient reports: appetite normal, voiding normally, pain well controlled, flatus, ambulating normally, no dizzy ambulation, no nauseated : doing well Objective - Vital Signs Latest vital signs: Vital Signs Temp Pulse Resp BP Pulse Ox 08/29/19 10:23 20 08/29/19 08:34 97.7 F 86 24 114/64 95 08/29/19 05:22 98.1 F 92 H 20 106/68 98 08/28/19 22:04 98.9 F 110 H 20 100/52 96 08/28/19 21:15 100.6 F H 08/28/19 20:43 117 H 142/67 08/28/19 19:43 120 H 132/59 08/28/19 18:58 99.8 F H 08/28/19 18:21 117 H 100 08/28/19 18:16 111 H 98 08/28/19 18:11 128 H 98 08/28/19 18:06 70 81 L 08/28/19 17:59 126 H 100 08/28/19 17:54 128 H 100 08/28/19 17:49 125 H 100 08/28/19 17:44 122 H 99 08/28/19 17:39 122 H 99 08/28/19 17:34 127 H 99 08/28/19 17:29 104 H 98 08/28/19 17:24 109 H 98 08/28/19 17:19 111 H 99 08/28/19 17:14 100.5 F H 103 H 98 08/28/19 17:09 98 H 98 08/28/19 17:04 96 H 98 08/28/19 16:59 97 H 98 08/28/19 16:54 100 H 99 08/28/19 16:49 101 H 98 08/28/19 16:44 104 H 98 08/28/19 16:39 106 H 100 08/28/19 16:34 104 H 100 08/28/19 16:29 96 H 100 08/28/19 16:24 91 H 100 08/28/19 16:19 102 H 100 08/28/19 16:14 98 H 100 08/28/19 16:09 94 H 100 08/28/19 16:04 103 H 100 08/28/19 15:59 103 H 100 08/28/19 15:56 104 H 82 L 08/28/19 15:54 107 H 100 08/28/19 15:49 95 H 100 08/28/19 15:44 92 H 100 08/28/19 15:39 97 H 100 08/28/19 15:34 98 H 100 08/28/19 15:29 95 H 100 08/28/19 15:24 91 H 100 08/28/19 15:19 100 H 100 08/28/19 15:14 103 H 100 08/28/19 15:09 98 H 100 08/28/19 15:04 105 H 100 08/28/19 14:59 89 100 08/28/19 14:54 91 H 100 08/28/19 14:49 105 H 100 08/28/19 14:44 76 100 08/28/19 14:39 96 H 100 08/28/19 14:34 91 H 100 08/28/19 14:29 101 H 99 08/28/19 14:24 100 H 97 08/28/19 14:19 101 H 98 08/28/19 14:14 105 H 99 08/28/19 14:09 103 H 98 08/28/19 14:04 98 H 98 08/28/19 14:00 100 H 137/80 08/28/19 13:59 104 H 100 08/28/19 13:54 102 H 100 08/28/19 13:48 107 H 136/71 08/28/19 13:44 115 H 100 08/28/19 13:43 110 H 136/72 08/28/19 13:42 98.1 F 08/28/19 13:39 98 H 99 08/28/19 13:38 98 H 141/82 08/28/19 13:34 110 H 100 08/28/19 13:31 100 H 155/89 08/28/19 13:30 101 H 85 08/28/19 13:29 101 H 116/59 99 08/28/19 13:27 100 H 119/58 08/28/19 13:26 102 H 124/59 08/28/19 13:24 105 H 100 08/28/19 13:23 112 H 125/67 08/28/19 13:21 100 H 136/63 08/28/19 13:20 113 H 138/49 92 08/28/19 13:19 107 H 98 08/28/19 13:18 108 H 138/69 08/28/19 13:14 108 H 99 08/28/19 13:13 85 08/28/19 11:58 105 H 98 08/28/19 11:57 106 H 93 08/28/19 11:53 101 H 97 08/28/19 11:48 103 H 98 08/28/19 11:46 102 H 94 08/28/19 11:43 115 H 96 08/28/19 11:38 114 H 96 08/28/19 11:33 107 H 93 08/28/19 11:28 111 H 93 08/28/19 11:27 107 H 94 08/28/19 11:23 112 H 99 Intake and Output 08/28/19 08/29/19 08/29/19 23:59 07:59 15:59 Intake Total 945.833 340 120 Output Total 1600 300 Balance -654.167 40 120 Intake: IV 945.833 100 AMPICILLIN/NS 1 GM/50 ML 50 1 gm In 50 ml @ 100 mls/ hr IV Q4HR CATHY Rx#: [id number] AMPICILLIN/NS 2 GM/100 ML 100 2 gm In 100 ml @ 100 mls /hr IV Q6HR CATHY Rx#: [id number] Lactated Ringers 1,000 ml 895.833 @ 125 mls/hr IV DIRECT CATHY Rx#:[id number] Oral 240 120 Output: Urine 1600 300 Indwelling Catheter 1600 Void 300 Other: Total, Intake Amount 240 120 Total, Output Amount 1600 300 # Voids Void 1 1 Estimated Blood Loss 150 - Exam Cardiovascular: Present: Regular rate, Normal S1, Normal S2 Lungs: Present: Clear to auscultation Abdomen: Present: normal appearance, soft. Absent: distention, tenderness, guarding, rigidity Uterus: Present: normal, firm, fundal height below umbilicus. Absent: bogginess, tenderness Extremities: Present: normal. Absent: tenderness, edema - Labs Labs: Abnormal lab results 08/28/19 08/28/19 08/29/19 Range/Units 12:20 18:02 07:30 WBC 18.4 H (4.5-11.0) K/mm3 RBC 3.47 L (3.65-5.03) M/mm3 Hgb 9.2 L (10.1-14.3) gm/dl Hct 27.7 L (30.3-42.9) % Creatinine 0.6 L (0.7-1.2) mg/dL Glucose 102 H (65-100) mg/dL ALT 6 L (7-56) units/L Albumin 3.2 L (3.9-5) g/dL
[2019-08-30] MEDS: IBUPROFEN 600 MG TAB PO SCH ×3 (02:51→16:47)
--- NOTE | 2019-08-30 10:33 | Progress Note ---
Assessment and Plan A: day 2 S/P . Anemia. Fever prior to delivery; patient has been afebrile for greater than 24 hours; has received antibiotics and they have been discontinued. P: Anticipate discharge later today or in the morning. Discussed with patient discharge instructions and warning signs. Advised patient to continue taking her vitamins and iron supplements at home. Advised patient to avoid intercourse, lifting, housework, driving, tub baths (patient may take showers). Advised patient to follow up at [facility] in 6 weeks for exam. Patient voiced understanding of all instructions. Subjective - Subjective Date of service: 08/30/19 Principal diagnosis: day 2 S/P Interval history: day 2 S/P . Anemia, on iron supplementation. Patient denies fever, chills, cough, shortness of breath, headache, chest pain, leg pain, nausea or vomiting, or heavy bleeding. Bottlefeeding. Patient reports: appetite normal, voiding normally, pain well controlled, flatus, ambulating normally, no dizzy ambulation, no nauseated [place]: doing well, bottle feeding Objective - Vital Signs Latest vital signs: Vital Signs Temp Pulse Resp BP Pulse Ox 08/30/19 07:33 97.4 F L 82 16 110/61 99 08/30/19 00:26 98.2 F 96 H 20 103/52 98 08/29/19 16:08 97.3 F L 98 H 20 111/55 97 08/29/19 15:00 20 08/29/19 12:13 98.4 F 90 20 113/55 97 Intake and Output 08/29/19 08/30/19 08/30/19 23:59 07:59 15:59 Intake Total 480 240 Balance 480 240 Intake: Oral 480 240 Other: Total, Intake Amount 240 240 # Voids Void 1 - Exam Cardiovascular: Present: Regular rate, Normal S1, Normal S2, No murmurs Lungs: Present: Clear to auscultation Abdomen: Present: normal appearance, soft. Absent: distention, tenderness, guarding, rigidity Uterus: Present: normal, firm, fundal height below umbilicus. Absent: bogginess, tenderness Extremities: Present: normal. Absent: tenderness, edema - Labs Labs: Abnormal lab results 08/29/19 Range/Units 16:51 Gentamicin Peak 0.5 L (5.0-10.0) ug/mL
[2019-08-30] MEDS: FERROUS SULFATE 325 MG TAB PO SCH ×2 (11:26→22:21)
[2019-08-30 16:17] LABS: Bacteria,Urine 2+ /HPF (Negative); Bilirubin,Urine NEG (Negative); Blood,Urine LG (Negative); Color,Urine Yellow (Yellow); Mucus,Urine 3+ /HPF; Urobilinogen,Urine < 2.0 mg/dL (<2.0)
[2019-08-30 16:21] LABS: RBC,Urine > 182.0 /HPF (0.0-6.0)
[2019-08-30] MEDS: oxyCODONE /ACETAMINOPHEN 5-325MG TAB PO PRN (22:21)
[2019-08-31] MEDS: IBUPROFEN 600 MG TAB PO SCH ×3 (05:50→11:41)
[2019-08-31] MEDS: FERROUS SULFATE 325 MG TAB PO SCH (09:42)
[2019-08-31] MEDS: oxyCODONE /ACETAMINOPHEN 5-325MG TAB PO PRN (09:43)
[2019-08-31 10:27] LABS: Bilirubin,Urine NEG (Negative); Blood,Urine NEG (Negative); Color,Urine Yellow (Yellow); Mucus,Urine FEW /HPF; Protein,Urine <15 mg/dL mg/dL (Negative); Urobilinogen,Urine < 2.0 mg/dL (<2.0)
--- NOTE | 2019-08-31 12:23 | Progress Note ---
Assessment and Plan A: PP Day #3 s/p Maternal Fever Asymptomatic Anemia P: Follow Routine Orders Continue feSO4 as ordered D/C Home today RTO in 6 Weeks Subjective - Subjective Date of service: 08/31/19 Principal diagnosis: day 2 S/P Patient reports: appetite normal, voiding normally, pain well controlled, flatus, ambulating normally [place]: doing well, bottle feeding Objective - Vital Signs Latest vital signs: Vital Signs Temp Pulse Resp BP Pulse Ox 08/31/19 11:41 18 08/31/19 09:43 18 08/31/19 08:13 97.7 F 88 18 110/66 97 08/31/19 01:49 97.9 F 99 H 16 109/56 99 08/30/19 16:47 20 08/30/19 15:46 98.0 F 77 20 104/54 99 Intake and Output 08/30/19 08/31/19 08/31/19 22:59 06:59 14:59 Intake Total 240 540 360 Output Total 500 Balance 240 540 -140 Intake: Oral 240 120 Intake, Free Water 540 240 Output: Urine 500 Indwelling Catheter 500 Other: Total, Intake Amount 240 120 Total, Output Amount 500 Voiding Method Toilet # Voids Indwelling Catheter 1 Void 1 1 1 - Exam Breasts: Present: normal Cardiovascular: Present: Regular rate Lungs: Present: Clear to auscultation, Normal air movement Abdomen: Present: normal appearance, soft, normal bowel sounds Uterus: Present: normal, firm, fundal height below umbilicus Extremities: Present: normal - Labs Labs: Abnormal lab results 08/30/19 Range/Units 15:40 Urine WBC (Auto) 125.0 H (0.0-6.0) /HPF
--- NOTE | 2019-08-31 12:24 | Discharge Summary ---
Providers - Providers Date of Admission: 08/28/19 07:22 Date of discharge: 08/31/19 Attending physician: OMAYRA JARVIS MD Primary care physician: OMAYRA JARVIS MD Hospitalization Reason for admission: active labor Delivery: Episiotomy: other Laceration: 2nd degree Other procedures: none complications: none Discharge diagnosis: IUP at term delivered baby: female Condition at discharge: Good Disposition: DC-01 TO HOME OR SELFCARE Plan - Provider Discharge Summary Activity: routine, no sex for 6 weeks, no heavy lifting 4 weeks, no strenuous exercise Diet: routine Instructions: routine Additional instructions: [] Smoking cessation referral if applicable(refer to patient education folder for contact #) [] Refer to [facility] Booklet Call your doctor immediately for: * Fever > 100.5 * Heavy vaginal bleeding ( >1 pad per hour) * Severe persistent headache * Shortness of breath * Reddened, hot, painful area to leg or breast * Drainage or odor from incision. * Keep incision clean and dry at all times and follow doctor's instructions regarding bathing/showering - Follow up plan Follow up: OMAYRA JARVIS MD [Primary Care Provider] - 6 Weeks
[2019-08-31 13:38] VITALS: BP 128/80
== END 2019-08-31 14:45 | disposition home or self-care (01) | DRG 807 ==
LOC: TRG 05:57 → APU 05:59 → TRG 07:19 → LD 07:22 → OB 21:11
PROVIDERS: ADMIT Obstetrics & Gynecology; ATTEND Obstetrics & Gynecology
PROC: 10E0XZZ Delivery of Products of Conception, External Approach (ICD-10-PCS; principal; 2019-08-28)
PROC: 0W8NXZZ Division of Female Perineum, External Approach (ICD-10-PCS; 2019-08-28)
PROC: 3E0R3BZ Introduction of Anesthetic Agent into Spinal Canal, Percutaneous Approach (ICD-10-PCS; 2019-08-28)
PROC: 00HU33Z Insertion of Infusion Device into Spinal Canal, Percutaneous Approach (ICD-10-PCS; 2019-08-28)
DX: O99.824 Streptococcus B carrier state complicating childbirth (principal); Z37.0 Single live birth; Z3A.37 37 weeks gestation of pregnancy; E66.01 Morbid (severe) obesity due to excess calories; O99.214 Obesity complicating childbirth; O90.81 Anemia of the puerperium
CPT/HCPCS: 36415; 59025; 80053; 80170; 81001; 85014; 85018; 85025; 85027; 86850; 86900; 86901; 87086; 88307; G0378; J0290; J0595; J1580; J2405; J2590; J7120